=== PATIENT | female | born 1965 | race Caucasian/White ===

== ENCOUNTER → 2017-01-15 | Outpatient (CLI) | payer OTHER ==
[~2017-01-15] MED LIST: CONTRAST GIVEN MC PRN; IOHEXOL 240 MG/ML 50ML VIAL. PO ONE; IOHEXOL 300 MG/ML 100ML VIAL. IV ONE; LISI10TA PO; LISI2.5T PO; birth control
--- NOTE | 2017-01-15 14:30 | KCIC ---
PROCEDURE CT study of the abdomen and pelvis with contrast HISTORY Right lower quadrant abdominal pain. Previous cholecystectomy. TECHNIQUE After IV infusion of 100 cc of Omnipaque 300, helical CT scanning of the abdomen and pelvis was performed. GI contrast was administered per mouth. One or more of the following individualized dose reduction techniques were utilized for this study: 1. Automated exposure control 2. Adjustment of the mA and/or kV according to patient size 3. Use of iterative reconstruction technique COMPARISON None available. FINDINGS The liver and spleen and pancreas are normal. The gallbladder is surgically absent. The common bile duct measures 9 millimeters in caliber. No adrenal mass is seen. Both kidneys are normal without hydronephrosis or hydroureter. Urinary bladder wall is smooth. No focal aneurysmal dilatation of the abdominal aorta is seen. No enlarged abdominal or pelvic lymphadenopathy is seen. Urinary bladder wall is smooth. The endometrial canal is thickened measuring 14 millimeters. There is a complex cystic mass of the right adnexae which wraps around the posterior aspect of the uterus into the cul-de-sac. The mass measures 9.5 centimeters in transverse dimension and 7.6 centimeters in AP dimension and 7.6 centimeters in vertical dimension. No free fluid is seen outside the mass. No free intraperitoneal air or bowel obstruction is seen. The appendix is small in size but otherwise unremarkable. The terminal ileum is unremarkable. No osteolytic process is seen. No lung base infiltrate is seen. IMPRESSION Complex cystic mass lesion of the right adnexa which wraps around the posterior aspect of the uterus in the cul-de-sac. Recommend correlation with a test to exclude an ectopic . Differential considerations also include tubo-ovarian abscess and/or hydrosalpinx or endometrioma or complex cystic ovarian neoplasm. Note-I called this report to WILIAM Javier at 2:15 p.m. on January 15, 2017. I was given instructions to send the patient back to the office. Thickening of the endometrial canal measuring 14 millimeters. This may be abnormal depending on the patient's menopausal state. Clinical correlation is recommended. Dilatation of the common bile duct measuring up to 9 millimeters. This may be secondary to previous cholecystectomy. Correlation with liver function tests may be helpful if clinically needed. Electronically signed by: Arturo De Los Santos MD (Jan 15, 2017 14:29:36)
== END | disposition home or self-care (01) ==
LOC: KCIC CT 12:23
PROVIDERS: ATTEND Nurse Practitioner Family
DX: R10.31 Right lower quadrant pain (principal); K35.2 Acute appendicitis with generalized peritonitis
CPT/HCPCS: 74177; Q9966; Q9967

== ENCOUNTER → 2018-04-01 | Outpatient (CLI) | payer OTHER | END | disposition home or self-care (01) | LOC: KCIC MAMMO 07:42 | DX: R92.8 Other abnormal and inconclusive findings on diagnostic imaging of breast (principal); R07.89 Other chest pain | CPT/HCPCS: 76641; 77066 ==

== ENCOUNTER → 2018-12-29 | Outpatient (CLI) | payer OTHER ==
[~2018-12-29] MED LIST changes: -CONTRAST GIVEN MC PRN; -IOHEXOL 240 MG/ML 50ML VIAL. PO ONE; -IOHEXOL 300 MG/ML 100ML VIAL. IV ONE
--- NOTE | 2018-12-30 08:49 | KCIC ---
Left breast diagnostic digital mammograms: Reason for examination: Follow-up nodule. Comparison is made to previous studies dated 04/01/2018 and 04/28/2016. Interpretation was made with the benefit of CAD. The skin and nipple show no abnormalities. No abnormal axillary lymph nodes are seen. The breast parenchyma shows scattered fibroglandular density. (Breast density: Category B.) There continues to be a small nodular parenchymal density in the 6:00 position 8 cm posterior to the nipple and measuring approximately 5 mm in greatest dimension. This does not show definite change. An additional tangential view was obtained following left breast ultrasound with a BB placed on the skin surface over the area of ultrasound concern. This was seen to correspond to the area of mammographic concern at the 6:00 position. There were no other new dominant masses, suspicious calcifications or architectural distortions. Impression: No change in a small nodule at the 6:00 position. Ultrasound to follow. BI-RADS Category 0: Incomplete. Needs additional imaging evaluation. Left breast ultrasound: Comparison is made to previous study dated 04/01/2018. Ultrasound examination was performed in the area of previous ultrasound concern and in the area of mammographic concern and at the left axilla. In the 12:30 position 2 cm from the nipple, there continues to be a small hypoechoic lesion measuring approximately 3.4 mm in greatest dimension. This a be slightly smaller than on previous exam. In the area of mammographic concern at the 6:00 position 8 cm from the nipple, there appears to be a superficial lesion probably representing a sebaceous cyst which measures 4 mm in greatest dimension. A BB was placed on the skin surface over this lesion and tangential view of the left breast was performed as described in the mammographic report. No other cystic or solid nodules are seen. No abnormal appearing lymph nodes are seen in the axilla. IMPRESSION: Slight decrease in size of the lesion at the 12:30 position now measuring 3.4 mm in size. 4 mm lesion at the 6:00 position 8 cm from the nipple appears to correspond to the mammographic abnormality and probably represents a sebaceous cyst. Recommend clinical follow-up as well as reevaluation with ultrasound in 6 months. BI-RADS Category 3: Probably Benign. "Our facility is accredited by the [employer] Mammography [employer]." This patient's information has been entered into a reminder system for the patient to be notified with the results of her examination and a target date for the next mammogram. Electronically signed by: Sobeida Rushing MD (12/30/2018 8:46 AM) [id number]
== END | disposition home or self-care (01) ==
LOC: KCIC MAMMO 07:48
PROVIDERS: ATTEND Nurse Practitioner Family
DX: N63.21 Unspecified lump in the left breast, upper outer quadrant (principal)
CPT/HCPCS: 76641; 77065

== ENCOUNTER → 2020-07-03 | Outpatient (CLI) | payer OTHER ==
--- NOTE | 2020-07-03 17:01 | KCIC ---
Bilateral diagnostic digital mammograms: Reason for examination: Follow-up nodules. Comparison is made to previous studies dated back to 04/28/2016. Interpretation was made with the benefit of CAD. The skin and nipples show no abnormalities. No abnormal axillary lymph nodes are seen. The breast parenchyma shows scattered fibroglandular density. (Breast density: Category B.) There continues to be a small superficial circumscribed nodule inferiorly around the 6:00 position posteriorly in the left breast which appears to be stable. There are no new dominant masses, suspicious calcifications or architectural distortions. Impression: Small circumscribed nodule at the 6:00 position posteriorly in the left breast which appears to be stable. No new nodules seen. Ultrasound to follow. BI-RADS Category 0: Incomplete. Needs additional imaging evaluation. Left breast ultrasound: Comparison is made to previous study dated 2018. Ultrasound examination of the left breast and axilla was performed. At the 12:30 position 2 cm from the nipple, there continues to be a small 3.2 mm hypoechoic fibrocystic lesion which is stable. At the 6:00 position 8 cm from the nipple, there continues to be a superficial nodule measuring 4.3 mm in size which is unchanged and consistent with probable sebaceous cyst. No new cystic or solid nodules are seen. No abnormal appearing lymph nodes are seen in the axilla. IMPRESSION: Change in the small fibrocystic nodule at the 12:30 position. No change in the superficial nodule in the 6:00 position which probably represents a sebaceous cyst. Recommend routine mammographic follow-up. BI-RADS Category 2: Benign. "Our facility is accredited by the [employer]amm[employer]." This patient's information has been entered into a reminder system for the patient to be notified with the results of her examination and a target date for the next mammogram. Electronically signed by: Sobeida Rushing MD (07/03/2020 4:58 PM) [id number]
== END ==
LOC: KCIC MAMMO 08:44
PROVIDERS: ATTEND Nurse Practitioner Family
DX: R92.8 Other abnormal and inconclusive findings on diagnostic imaging of breast (principal); N63.20 Unspecified lump in the left breast, unspecified quadrant
CPT/HCPCS: 76641; 77066

== ENCOUNTER → 2021-05-03 | Outpatient (CLI) | payer OTHER ==
[~2021-05-03] MED LIST changes: -LISI2.5T PO; +LISI2.5T12 PO
--- NOTE | 2021-05-03 09:21 | KCIC ---
EXAM: DUAL ENERGY X-RAY ABSORPTIOMETRY (DEXA). HISTORY: Postmenopausal screening. FINDINGS: The lowest measured T-score is -0.7 in the lumbar spine, based on a bone mineral density of 0.972 g/cm^2. Refer to the worksheets for full detail. No comparison examinations are available. IMPRESSION: Normal. Bone mineral density yields a T-score of -1.0 or greater. Fracture risk is low. FRAX was not calculated. METHODOLOGY: Dual energy x-ray absorptiometry was performed to measure bone mineral density. The foll owing analysis is based on the 2019 Official Positions of the International Society for Clinical Dens itometry: Measurements of the hips and the average of L1-L4 are preferred. When the spine and/or hip cannot be feasibly measured or interpreted, or in the setting of hyperparathyroidism, distal radial bone minera l density may be measured. The lumbar spine T-score is based on the average bone mineral density of L1-L4. In the setting of art ifact or anatomic abnormality, some lumbar levels may be excluded, and the remaining levels used for calculation. A single lumbar level is not used for diagnosis, and if only a single level is available for assessment, another anatomic site will be used to assign a diagnosis. The hip T-score is based on the bone mineral density measurement of the femoral neck or total proxima l femur of either side, whichever is lowest. Bilateral mean values are not used for diagnosis. The forearm T-score is derived from 33% of the distal radius of the nondominant forearm. For postmenopausal and perimenopausal women, and men age 50 or older, of all ethnic groups, T-scores are calculated through comparison of the current measurement with the NHANES III database standard fo r females aged 20-29 years. The lowest T-score of the evaluated anatomic sites is used to a ssign a diagnosis based on the World Health Organization densitometric classification. In premenopausal females and males younger than age 50, a Z-score is calculated based on population s pecific reference data for patient sex and self-reported ethnicity. Electronically signed by: David Alejo MD (05/03/2021 9:18 AM) [id number]
== END ==
LOC: KCIC DEXA 08:05
PROVIDERS: ATTEND Nurse Practitioner Family
DX: N95.1 Menopausal and female climacteric states (principal)
CPT/HCPCS: 77080

== ENCOUNTER → 2021-08-01 | Outpatient (CLI) | payer OTHER ==
--- NOTE | 2021-08-01 12:39 | KCIC ---
Bilateral digital screening mammograms with 3-D tomosynthesis: Reason for examination: Routine screening. Comparison is made to previous studies dated back to 05/03/2015. Bilateral mammograms in CC and oblique projections were obtained with 2-D imaging and 3-D tomosynthes is imaging on a Siemens Inspiration unit and reviewed on the workstation. Interpretation was made wit h the benefit of CAD. The skin and nipples show no abnormalities. No abnormal axillary lymph nodes are seen. The breast par enchyma shows scattered fatty and fibroglandular density. (Breast density: Category B.) There continu es to be a superficial lesion in the 6:00 position posteriorly in the left breast consistent with a s ebaceous cyst which is stable. There are no new dominant masses, suspicious calcifications or archite ctural distortion. A few benign appearing calcifications are again seen. Impression: No evidence of malignancy. Recommend routine screening. BI-RAD Category 2: Benign. "Our facility is accredited by the [employer] Mammography [employer]." This patient's information has been entered into a reminder system for the patient to be notified wit h the results of her examination and a target date for the next mammogram. Electronically signed by: Sobeida Rushing MD (08/01/2021 12:37 PM) [id number]
== END ==
LOC: KCIC MAMMO 10:54
PROVIDERS: ATTEND Nurse Practitioner Family
DX: Z12.31 Encounter for screening mammogram for malignant neoplasm of breast (principal)
CPT/HCPCS: 77063; 77067